=== PATIENT | female | born 2000 | race Caucasian/White ===

== ENCOUNTER → 2020-05-01 | Outpatient (CLI) | payer OTHER ==
--- NOTE | 2020-05-01 08:43 | Diagnostic Imaging Report ---
EXAMINATION: US Abdomen limited. TECHNIQUE: Multiple real-time grayscale images were obtained over the right upper quadrant in various projections. HISTORY: Abdominal pain COMPARISON: None available. FINDINGS: The liver is normal in size. The liver is normal in echogenicity. No focal lesions are seen. The portal vein is patent with hepatopedal flow. Gallbladder is normal without wall thickening or pericholecystic fluid. Sonographic Chow sign is negative. Common duct measures 4 mm. There is no biliary ductal dilation. The visualized portions of the pancreas are normal. Right kidney appears normal. IMPRESSION: 1. Unremarkable right upper quadrant ultrasound. Dictated by: Dictated on workstation # [id number]
== END ==
LOC: RAD 07:30
PROVIDERS: ATTEND Internal Medicine Gastroenterology
DX: R19.7 Diarrhea, unspecified (principal); K59.00 Constipation, unspecified; R10.9 Unspecified abdominal pain
CPT/HCPCS: 76705

== ENCOUNTER → 2021-09-03 | Outpatient (CLI) | payer OTHER ==
--- NOTE | 2021-09-03 13:04 | Diagnostic Imaging Report ---
PROCEDURE: US Thyroid. TECHNIQUE: Multiple real-time grayscale images were obtained of the thyroid in various projections. INDICATION: Thyroid nodule. FINDINGS: Right lobe of the thyroid measures 3.6 x 1.1 x 0.8 cm, and left lobe measures 3.8 x 0.9 x 1.2 cm. Isthmus is 2 mm in thickness. Both lobes of the thyroid show some parenchymal heterogeneity, but no discrete thyroid mass is identified. IMPRESSION: Thyroid heterogeneity. No thyroid mass is detected. Dictated by: Dictated on workstation # [id number]
== END ==
LOC: RAD 12:30
PROVIDERS: ATTEND Internal Medicine
DX: E04.1 Nontoxic single thyroid nodule (principal)
CPT/HCPCS: 76536

== ENCOUNTER 2021-09-16 05:31 | Outpatient (RCR) | payer OTHER ==
[~2021-09-16] VITALS: Ht 170.2 cm; Wt 84.8 kg
[~2021-09-16 05:31] MED LIST: LEVO137C4 PO; NORE-93 PO; PANT40TA52 PO
== END 2021-09-16 13:29 | disposition home or self-care (01) ==
LOC: PREOP 05:31
PROVIDERS: ATTEND Surgery
DX: Z01.818 Encounter for other preprocedural examination (principal)

== ENCOUNTER → 2021-09-18 | Day surgery (SDC) | payer OTHER ==
[2021-09-18] VITALS (7 sets, daily range): BP systolic 135–159; BP diastolic 78–96
[~2021-09-18] VITALS: Ht 170.2 cm; Wt 84.8 kg
[~2021-09-18] MED LIST changes: +HURRICAINE EXT TUBE (BENZOCAINE) XX PRN; +LACTATED RINGERS 1,000 ML IV ONE; +LACTATED RINGERS 1,000 ML IV STA; +MIDAZOLAM 2 MG/2 ML (VERSED) VIAL ONE; +proPOfol 200 MG/20 ML (DIPRIVAN) VIAL IV ONE
--- OUTSIDE RECORDS SUMMARY | 2021-09-18 13:39 | XMS REPORT | Clinical Summary ---
Author Author [facility] Organization [facility] Address Unknown Phone Unavailable Care Team Providers Care Vamp Presser Name Role Phone Mercedes Martino MD PCP Allergies No known active allergies Medications End Date Status Medication Sig Dispensed Refills Start Date Active ibuprofen (ADVIL,MOTRIN) 0 800 MG tablet 8 Active LO LOESTRIN FE 1 mg-10 0 mcg (24)/10 mcg (2) tab 8 Active PLASTER CASTER THYROID 90 mg tab 0 8 Active Problems Not on file Encounters Not on filefrom Last 3 Months Immunizations Not on file Social History Date Tobacco Use Types Packs/Day Years Used Never Smoker Smokeless Tobacco: Never Used Tobacco Cessation: Counseling Given: Yes Sex Assigned at Date Recorded Not on file Last Filed Vital Signs Reading Time Taken Comments Vital Sign 120/78 03/22/2018 11:36 AM CDT Blood Pressure 82 03/22/2018 11:36 AM CDT Pulse 37.1 C (98.7 F) 03/22/2018 11:36 AM CDT Temperature 16 03/22/2018 11:36 AM CDT Respiratory Rate 98% 03/22/2018 11:36 AM CDT Oxygen Saturation - - Inhaled Oxygen Concentration 83.4 kg (183 lb 13.8 oz) 03/22/2018 11:36 AM CDT Weight 167.6 cm (5' 6") 03/22/2018 11:36 AM CDT Height 29.68 03/22/2018 11:36 AM CDT Body Mass Index Plan of Treatment Health Maintenance Due Date Last Done Comments Cervical Cancer: 2019 Screening Goals Not on file Implants Not on file Procedures Not on filefrom Last 3 Months Results Not on filefrom Last 3 Months Additional Health Concerns Not on file Insurance Type Payer Benefit Subscriber ID Effective Phone Address Plan / Dates Group [facility] 1 [id number] 2017[facility]P [facility] [id number] Care Teams Start Date End Date Vamp Presser Relationship Specialty 03/22/18 Mercedes Martino MD PCP - General Family [address] Medicine [place] [phone]
--- NOTE | 2021-09-18 14:49 | Progress Note-Pre Operative ---
Pre-Operative Progress Note H&P Reviewed The H&P was reviewed, patient examined and no changes noted. Date Seen by Provider: Sep 18, 2021 Time Seen by Provider: 14:48 Date H&P Reviewed: Sep 18, 2021 Time H&P Reviewed: 14:48 Pre-Operative Diagnosis: chronic gastritis EMILE SEGAL DO Sep 18, 2021 14:49
--- NOTE | 2021-09-18 15:09 | Progress Note-Post Operative ---
Post-Operative Progess Note Surgeon (s)/Manhole Builder (s) Surgeon EMILE SEGAL DO Manhole Builder: na Pre-Operative Diagnosis chronic gastritis Post-Operative Diagnosis gastritis changes of antrum, small hiatal hernia Procedure & Operative Findings Date of Procedure 09/18/21 Procedure Performed/Findings egd c biopsies Anesthesia Type per land degradation analyst Estimated Blood Loss Estimated blood loss (mL): none Specimens/Packing Specimens Removed antrum, ge EMILE SEGAL DO Sep 18, 2021 15:09
--- NOTE | 2021-09-18 15:45 | Discharge Inst-Simple/Standard ---
Discharge Inst-Standard Patient Instructions/Follow Up Plan of Care/Instructions/FU: 2 weeks asif Activity as Tolerated: Yes Discharge Diet: Regular Diet EMILE SEGAL DO Sep 18, 2021 15:45
--- NOTE | 2021-09-18 20:46 | OPERATIVE REPORT ---
DATE OF SERVICE: 09/18/2021 PREOPERATIVE DIAGNOSIS: Chronic gastritis. POSTOPERATIVE DIAGNOSES: Slight gastritis in the antrum, small hiatal hernia. PROCEDURE: EGD with biopsy. SURGEON: Emile Gomez DO ANESTHESIA: Per IRON WORKER FOREMAN. ESTIMATED BLOOD LOSS: None. COMPLICATIONS: None. SPECIMENS: Antrum, GE junction. INDICATIONS: The patient is a 21-year-old female with chronic gastritis symptoms. She has history of atrophic gastritis. She understands risks and benefits of procedure and wishes to proceed. Consent was signed in the chart. DESCRIPTION OF PROCEDURE: The patient was taken to the endoscopy suite, placed in left lateral recumbent position. Timeout was performed. Scope was inserted in mouth, down the esophagus, stomach and into the duodenum without difficulty. There were no polyps, masses or ulcerations within the duodenum. Scope was slowly retracted back into the stomach where it was further insufflated. Patchy areas of gastritis appearance in the antrum. Biopsies were obtained. Scope was retroflexed noting a small hiatal hernia, no other pathology. Scope was returned to its normal position, slowly withdrawn to distal esophagus. No polyps, masses or ulcerations. Biopsy of the GE junction was obtained. Scope was slowly retracted back until completely removed, noting no other pathology. The patient tolerated procedure well without any complications. She was taken to recovery room in stable condition. RECOMMENDATIONS: Continue on current medications. She will follow up in office in two weeks to discuss pathology results. Likely repeat EGD in one year from her previous recommendations from her previous reel and rewinder operator. Job ID: [id number] DocumentID: [id number] Dictated Date: 09/18/2021 15:35:56 Director Internal Communications Date: 09/18/2021 20:45:05 Dictated By: EMILE GOMEZ DO
--- NOTE | 2021-09-24 13:27 | Anesthesia-General Post-Op ---
MAC Significant Intra-Op Events Notes late entry 09/18 Patient Condition Mental Status/LOC: Same as Preop Cardiovascular: Satisfactory Nausea/Vomiting: Absent Respiratory: Satisfactory Pain: Controlled Complications: Absent Post Op Complications Complications None Follow Up Care/Instructions Patient Instructions None needed. Anesthesiology Discharge Order Discharge Order Patient is doing well, no complaints, stable vital signs, no apparent adverse anesthesia problems. No complications reported per nursing. ALFONSO HERNANDEZ CRNA Sep 24, 2021 13:27
== END ==
LOC: ENDO 13:27
PROVIDERS: ATTEND Surgery
DX: K29.40 Chronic atrophic gastritis without bleeding (principal); K44.9 Diaphragmatic hernia without obstruction or gangrene; K25.9 Gastric ulcer, unspecified as acute or chronic, without hemorrhage or perforation; K21.00 Gastro-esophageal reflux disease with esophagitis, without bleeding; Z79.899 Other long term (current) drug therapy
CPT/HCPCS: 84703

== ENCOUNTER → 2021-10-20 | Outpatient (CLI) | payer OTHER ==
[~2021-10-20] MED LIST changes: -HURRICAINE EXT TUBE (BENZOCAINE) XX PRN; -LACTATED RINGERS 1,000 ML IV ONE; -LACTATED RINGERS 1,000 ML IV STA; -MIDAZOLAM 2 MG/2 ML (VERSED) VIAL ONE; -proPOfol 200 MG/20 ML (DIPRIVAN) VIAL IV ONE
--- NOTE | 2021-10-20 10:06 | Diagnostic Imaging Report ---
PROCEDURE: US Gallbladder. TECHNIQUE: Multiple real-time grayscale images were obtained over the right upper quadrant in various projections. INDICATION: Epigastric pain. Comparison with previous exam 05/01/2020. FINDINGS: Liver parenchyma appears normal measuring 16 cm. Bile ducts are not dilated. Common duct measures 4 mm. Gallbladder appears normal without evidence of gallstones or wall thickening. The pancreas is normal. There is no pericholecystic edema. Aorta measures 1.7 cm. Vena cava and portal vein appear normal with Doppler sampling. Right kidney measures 10 x 5.8 x 5.6 cm. There is no hydronephrosis. There is no ascites. Negative Chow's sign. IMPRESSION: Normal right upper quadrant ultrasound. Dictated by: Dictated on workstation # [id number]
== END ==
LOC: RAD 08:30
PROVIDERS: ATTEND Surgery
DX: R10.13 Epigastric pain (principal)
CPT/HCPCS: 76705

== ENCOUNTER → 2021-10-29 | Outpatient (CLI) | payer OTHER ==
[~2021-10-29] MED LIST changes: +CATHETER FLUSH 10 ML SYR IV PRN
--- NOTE | 2021-10-29 15:45 | Diagnostic Imaging Report ---
Clinical indication: Patient with epigastric pain. Comparison: Right upper quadrant ultrasound dated 10/20/2021. Procedure: The patient was administered 4.78 millicuries of technetium 99m mebrofenin. After 60 minutes of the images, one can of Ensure was drink followed by another 60 minutes of imaging. A nuclear medicine hepatobiliary scan with ejection fraction was performed. Findings: There is prompt uptake and excretion of radiotracer by the liver. Activity is visible in the gallbladder by 15 minutes and the small bowel by 35 minutes. Ejection fraction of the gallbladder is calculated at 68% (normal >33%). The gallbladder visibly empties on the scans following the ingestion of Ensure. Impression: Normal hepatobiliary scan with normal gallbladder ejection fraction. Dictated by: Dictated on workstation # [id number]
== END ==
LOC: CARD 10:00
PROVIDERS: ATTEND Surgery
DX: R10.13 Epigastric pain (principal)
CPT/HCPCS: 78227; A9537

== ENCOUNTER 2021-12-28 18:09 | Emergency (ER) | payer OTHER ==
[~2021-12-28] VITALS: Ht 170 cm; Wt 83.0 kg
[~2021-12-28 18:09] MED LIST changes: -CATHETER FLUSH 10 ML SYR IV PRN
[2021-12-28 18:15] VITALS: BP 141/90
--- NOTE | 2021-12-28 18:35 | ED Upper Extremity ---
General Chief Complaint: Upper Extremity Stated Complaint: HIT WITH BALL Nursing Triage Note: PT AMB TO [facility] PT CO OF R ELBOW AND SHOULDER PAIN, PT WAS HIT W SOFTBALL IN ELBOW FROM SHORT DISTANCE. PT CO OF PAIN, TINGLING THAT HURTS UP TO SHOULDER RATES [id number]. PT WEARING SLING Source: patient Exam Limitations: no limitations History of Present Illness Date Seen by Provider: Dec 28, 2021 Time Seen by Provider: 18:34 Initial Comments Patient is a 21-year-old female who presents ED with right forearm and elbow pain. Patient states 1 hour ago she took a softball right to the elbow and forearm. She states she heard a pop. Had immediate swelling and pain. Pain with any movement of the right elbow and wrist. No obvious bone deformity. Swelling and bruising. Denies taking thing for pain. Patient was placed in sling at practice. Denies distal numbness and tingling, shoulder pain, chest pain, shortness of breath, cough, fever Allergies and Home Medications Allergies Coded Allergies: No Known Drug Allergies (Unverified , 09/10/21) Patient Home Medication List Home Medication List Reviewed: Yes Hydrocodone/Acetaminophen (Hydrocodone-Acetamin 5-325 mg) 1 Each Tablet, 1 TAB PO Q4H PRN for PAIN-MODERATE (5-7) Prescribed by: SURAJ GREENWOOD on 12/28/211916 Ibuprofen (Ibuprofen) 800 Mg Tablet, 800 MG PO Q8H PRN for PAIN Prescribed by: SURAJ GREENWOOD on 12/28/211916 Levothyroxine Sodium (Levothyroxine) 137 Mcg Capsule, 137 MCG PO DAILY, (Reported) Entered as Reported by: PEDRO PABLO BRANNON on 09/10/211500 Norethindrone AC-Eth Estradiol (Loestrin 21 1-20 Tablet) 1 Each Tablet, 1 EACH PO DAILY, (Reported) Entered as Reported by: PEDRO PABLO BRANNON on 09/10/211500 Pantoprazole Sodium (Pantoprazole Sodium) 40 Mg Tablet.dr, 40 MG PO DAILY, (Reported) Entered as Reported by: PEDRO PABLO BRANNON on 09/10/211500 Review of Systems Constitutional: No chills, No diaphoresis, No dizziness, No fever EENTM: No blurred vision, No vision loss Respiratory: No cough, No dyspnea on exertion Cardiovascular: No chest pain, No edema Gastrointestinal: No abdominal pain, No diarrhea, No nausea, No vomiting Genitourinary: No decreased output, No discharge Musculoskeletal: No back pain; muscle pain, muscle stiffness Skin: change in color All Other Systems Reviewed Negative Unless Noted: Yes Past Hhymecc-Wkqcmz-Zxeabh Hx Patient Social History Tobacco Use?: No Substance use?: No Alcohol Use?: No Pt feels they are or have been: No Immunizations Up To Date Influenza Vaccine Up-to-Date: Yes; Up-to-Date First/Initial COVID19 Vaccinat: 2020 Second COVID19 Vaccination Alexis: 2020 Third COVID19 Vaccination Date: YES COVID19 Vaccine Credit Rating Checker: MailpileA Seasonal Allergies Seasonal Allergies: No Past Medical History Surgeries: Yes (R SHOULDER/SEPTIC HIP/TOOTH IMPLANT/BILAT TENDON CUT) Orthopedic Respiratory: No Cardiac: No Neurological: No Genitourinary: No Gastrointestinal: Yes (ATROPHIC GASTRITIS) Musculoskeletal: No Endocrine: Yes Hypothyroidsim HEENT: No Cancer: No Psychosocial: No Blood Disorders: No Physical Exam Vital Signs Vital Signs - First Documented 12/28/21 18:15 Temp 35.9 Pulse 91 Resp 18 B/P (MAP) 141/90 (107) Pulse Ox 100 Capillary Refill : Less Than 3 Seconds Height, Weight, BMI Height: '" Weight: lbs. oz. kg; 28.00 BMI Method: General Appearance: WD/WN, no apparent distress HEENT: PERRL/EOMI, normal ENT inspection, TMs normal, pharynx normal Neck: non-tender, full range of motion, supple, normal inspection Cardiovascular: regular rate, rhythm, no edema, no gallop Respiratory: chest non-tender, lungs clear, normal breath sounds Gastrointestinal: normal bowel sounds, non tender, soft Back: normal inspection, no CVA tenderness Shoulder: normal inspection, non-tender, no evidence of injury Elbow/Forearm: Right, limited ROM, swelling Wrist: Yes pain, Yes soft tissue tenderness Hand: normal inspection, non-tender, normal ROM, Right Neurologic/Psychiatric: investigations chief II-XII nml as tested, no motor/sensory deficits, alert, normal mood/affect, oriented x 3 Skin: other (Swelling of the right proximal lateral forearm.) Progress/Results/Core Measures Results/Orders My Orders Orders - AISHA NARANJO Elbow, Right, 3 Views (12/28/21 18:35) Forearm, Right, 2 Views (12/28/21 18:35) Hydrocodone/Apap 5/325 Tablet (Lortab 5 (12/28/21 18:45) Hydrocodone/Apap 5/325 Tablet (Lortab 5 (12/28/21 18:50) Medications Given in ED Current Medications Medications Dose Ordered Sig/Regis Route Start Time Stop Time Status Last Admin Dose Admin Acetaminophen/ Hydrocodone Bitart 1 ea ONCE ONCE PO 12/28/21 18:45 12/28/21 18:49 DC 12/28/21 18:51 1 EA Vital Signs/I&O 12/28/21 18:15 Temp 35.9 Pulse 91 Resp 18 B/P (MAP) 141/90 (107) Pulse Ox 100 Blood Pressure Mean: 107 Departure Communication (PCP) X-ray was negative for fracture. Limited movement secondary to the pain. Does have an area of swelling and bruising to the right proximal forearm right lateral elbow. Muscle bone contusion. If worsening pain and patient will need to fatimah-ray in 7 to 10 days. She does have a orthopedic who she will follow up with. Will discharge with pain medication anti-inflammatories. Recommend ice for the next 3 to 4 days. Chris wrap for support. Return precautions were discussed. Impression Primary Impression: Contusion of elbow Disposition: HOME, SELF-CARE Condition: Stable Departure-Patient Inst. Decision time for Depature: 19:16 Referrals: NO,LOCAL PHYSICIAN (PCP) Primary Care Physician LUANN DEWITT MD Patient Instructions: How to Use a Shoulder Sling, Contusion (DC) Scripts Ibuprofen (Ibuprofen) 800 Mg Tablet 800 MG PO Q8H PRN for PAIN, #20 TAB Prov: AISHA NARANJO 12/28/21 Hydrocodone/Acetaminophen (Hydrocodone-Acetamin 5-325 mg) 1 Each Tablet 1 TAB PO Q4H PRN for PAIN-MODERATE (5-7), #14 TAB Prov: AISHA NARANJO 12/28/21 AISHA NARANJO Dec 28, 2021 18:35
[2021-12-28] MEDS ORDERED: HYDROcodone/APAP 5 MG/325 MG (LORTAB) TAB PO ONE (18:45)
[2021-12-28] MEDS ORDERED: HYDROcodone/APAP 5 MG/325 MG (LORTAB) TAB ONE (18:50)
--- NOTE | 2021-12-28 19:01 | Diagnostic Imaging Report ---
CLINICAL HISTORY: Arm pain. Softball injury. COMPARISON: None. TECHNIQUE: 2 views of the right forearm. FINDINGS: There is no acute fracture or dislocation of the right radius and ulna. Alignment is anatomic. The imaged joint spaces are preserved. IMPRESSION: 1. No acute fracture or dislocation in the right radius and ulna. Dictated by: Dictated on workstation # [id number]
--- NOTE | 2021-12-28 19:01 | Diagnostic Imaging Report ---
CLINICAL HISTORY: Right elbow pain. COMPARISON: None. TECHNIQUE: Three views of the right elbow. FINDINGS: There is no acute fracture or dislocation of the right elbow. Alignment is anatomic. The imaged joint spaces are preserved. No joint effusion is seen in the right elbow. IMPRESSION: 1. No acute fracture or dislocation in the right elbow. Dictated by: Dictated on workstation # [id number]
[2021-12-28] MEDS ORDERED: ACHD5005 PO (19:17)
[2021-12-28] MEDS ORDERED: IBUP-1780 PO (19:17)
== END 2021-12-28 19:28 | disposition home or self-care (01) ==
LOC: EDUNIT# 18:09 → ER 18:12
DX: S50.01XA Contusion of right elbow, initial encounter (principal); S50.11XA Contusion of right forearm, initial encounter; W21.07XA Struck by softball, initial encounter; X50.1XXA Overexertion from prolonged static or awkward postures, initial encounter; Y93.64 Activity, baseball
CPT/HCPCS: 73080; 73090